=== PATIENT | female | born 1985 | race Caucasian/White ===

== ENCOUNTER 2016-04-25 20:05 | Emergency (ER) | payer OTHER ==
[~2016-04-25] VITALS: Ht 167.6 cm; Wt 65.8 kg
[2016-04-25 20:18] VITALS: BP 132/86
--- NOTE | 2016-04-25 20:44 | PHYS DOC ---
Past Medical History Past Medical History: No Pertinent History Past Surgical History: No Surgical History Alcohol Use: Occasionally Drug Use: None Adult General Chief Complaint Chief Complaint: FATIGUE HPI HPI Patient is a 30 year old female who presents emergency Department today with complaint of congestion, nonproductive cough, generalized aches, decreased energy, lightheadedness and exertional dyspnea that he initially began yesterday evening. Patient is a nurse in another local hospital. She has been exposed to patients with influenza a. Other than working in the hospital, she denies recent hospitalizations patient, foreign travel or antibiotic use within the past 90 days. She denies any history of heart or lung disease. Patient states that she had an episode of diarrhea yesterday as well. There are no reported illnesses within the home. Review of Systems Review of Systems Constitutional: Denies fever or chills [] Eyes: Denies change in visual acuity, redness, or eye pain [] HENT: Denies nasal congestion or sore throat [] Respiratory: Denies cough or shortness of breath [] Cardiovascular: No additional information not addressed in HPI [] GI: Denies abdominal pain, nausea, vomiting, bloody stools or diarrhea [] : Denies dysuria or hematuria [] Musculoskeletal: Denies back pain or joint pain [] Integument: Denies rash or skin lesions [] Neurologic: Denies headache, focal weakness or sensory changes [] Endocrine: Denies polyuria or polydipsia [] Current Medications Current Medications Current Medications Medications (Trade) Dose Ordered Sig/Cynthia Start Time Stop Time Status Last Admin Dose Admin Oseltamivir Phosphate (Tamiflu) 75 mg 1X ONCE 04/25/16 21:15 04/25/16 21:16 UNV Allergies Allergies Allergies Coded Allergies Type Severity Reaction Last Updated Verified No Known Drug Allergies 04/25/16 No Physical Exam Physical Exam Constitutional: Well developed, well nourished, no acute distress, non-toxic appearance. HENT: Normocephalic, atraumatic, bilateral external ears normal, oropharynx moist, no oral exudates, scant amount of clear rhinorrhea. There is no trismus or hot potato speech. Posterior oropharynx is with mild cobblestoning. There is no peritonsillar swelling or uvular deviation. Eyes: PERRLA, EOMI, conjunctiva normal, no discharge. [] Neck: Normal range of motion, no tenderness, supple, no stridor. There is no meningismus. There is bilateral anterior posterior cervical lymphadenopathy. Cardiovascular:Heart rate 86 with regular rhythm, no murmur Lungs & Thorax: There is no respiratory distress or respiratory fatigue. Patient is able speak in full sentences. Oxygen saturation is 98% on room air. Abdomen: Bowel sounds normal, soft, no tenderness, no masses, no pulsatile masses. [] Skin: Warm, dry, no erythema, no rash. [] Back: No tenderness, no CVA tenderness. [] Extremities: No tenderness, no cyanosis, no clubbing, ROM intact, no edema. [] Neurologic: Alert and oriented X 3, normal motor function, normal sensory function, no focal deficits noted. [] Psychologic: Affect normal, judgement normal, mood normal. [] Current Patient Data Vital Signs Vital Signs Date Time Temp Pulse Resp B/P Pulse Ox O2 Delivery O2 Flow Rate FiO2 04/25/16 20:18 98.2 94 16 100 Room Air 98.2 Lab Values Laboratory Tests Test 04/25/16 20:19 Influenza Type A Antigen Positive (NEGATIVE) Influenza Type B Antigen Negative (NEGATIVE) EKG EKG [] Radiology/Procedures Radiology/Procedures [] Course & Med Decision Making Course & Med Decision Making Pertinent Labs and Imaging studies reviewed. (See chart for details) [] Dragon Disclaimer Dragon Disclaimer This electronic medical record was generated, in whole or in part, using a voice recognition dictation system. Departure Departure Impression: Primary Impression: Influenza A Disposition: 01 HOME, SELF-CARE Condition: GOOD Referrals: NO PCP (PCP) Patient Instructions: Influenza, Adult, [id number] Additional Instructions: 1. You tested positive for influenza A. 2. Acetaminophen every 4-6 hours or ibuprofen every 8 hours for fever and body aches. 3. Maintain adequate hydration by drinking 10-12, 10 ounce glasses of non- caffeinated beverage daily. 4. Rest at home for the next 3 days. 5. Take the medications prescribed. 6. Review the discharge instructions for self-care and reasons to return to the emergency department. 7. Follow-up with a primary care doctor within a week if no improvement or worsening of your symptoms. A pamphlet is provided to you for assistance in making this happened. Scripts Oseltamivir Phosphate (Tamiflu)75 Mg Capsule1 Cap PO BID #9 CAP You received first dose of Tamiflu in the emergency department. Prov:STEPHANIE PALMA 04/25/16 STEPHANIE PALMA Apr 25, 2016 20:44
[2016-04-25 21:04] LABS: OBC FLU VALID
[2016-04-25] MEDS ORDERED: OSEL75CA PO (21:11)
[2016-04-25] MEDS ORDERED: OSELTAMIVIR 75 MG CAPSULE PO ONE (21:15)
== END 2016-04-25 21:19 | disposition home or self-care (01) ==
LOC: ER 20:05
DX: J09.X2 Influenza due to identified novel influenza A virus with other respiratory manifestations (principal)
CPT/HCPCS: 87804; 99284

== ENCOUNTER 2017-02-25 06:36 | Day surgery (SDC) | payer OTHER ==
[~2017-02-25] VITALS: Ht 165.1 cm; Wt 69.9 kg
[~2017-02-25 06:36] MED LIST: OSEL75CA PO
[2017-02-25] MEDS ORDERED: fentaNYL PF VIAL 100 MCG/2 ML VIAL IV PRN ×2 (07:00)
[2017-02-25] MEDS ORDERED: ONDANSETRON PF 4 MG/2 ML VIAL. IV PRN (07:00)
[2017-02-25] MEDS ORDERED: IV RINGERS,LACTATED 1000ML 1,000 ML IV SCH (07:00)
[2017-02-25] MEDS ORDERED: HYDROmorphone 2 MG/ML VIAL IV PRN (07:00)
[2017-02-25] MEDS ORDERED: MORPHINE SULFATE 2 MG/ML DISP.SYRIN. IV PRN (07:00)
[2017-02-25] MEDS ORDERED: LIDOCAINE 1% PF 2 ML VIAL. ID PRN (07:00)
[2017-02-25] MEDS ORDERED: PROCHLORPERAZINE 10 MG/2 ML VIAL. IV PRN (07:00)
[2017-02-25] MEDS ORDERED: FERR-26 PO (07:09)
[2017-02-25] MEDS ORDERED: BUPIVAC MPF-EPI 0.5%-1:200000 30 ML VIAL. ONE (07:13)
[2017-02-25 07:19] LABS: NEG OBC UR NEG; POS OBC UR POS
[2017-02-25] MEDS ORDERED: MIDAZOLAM HCL/PF 2 MG/2 ML VIAL. ONE (07:39)
[2017-02-25] MEDS ORDERED: fentaNYL PF VIAL 100 MCG/2 ML VIAL ONE (07:39)
--- NOTE | 2017-02-25 07:54 | PDOC ---
SURGICAL PROGRESS NOTE Subjective Pre-Op Note Pt seen and reexamined. Office note H&P reviewed and unchanged. 31 yo F with RLQ SQ mass, c/w endometrioma. Pt on period currently, with mass large and painful site marked with pt in preop TO OR for excisional biopsy R/B/A d/w pt and pt's . Risks, including, but not limited to: bleeding, infection, damage to surrounding structures, risk of anesthesia They appear to understand, their questions are answered and they agree to proceed. Vital Signs Vital Signs Date Time Temp Pulse Resp B/P (MAP) Pulse Ox O2 Delivery O2 Flow Rate FiO2 02/25/17 07:05 97.8 75 18 119/74 100 Room Air 97.8 Labs Laboratory Tests Test 02/25/17 06:43 Urine Test Negative (NEG) Laboratory Tests Test 02/25/17 06:43 Urine Test Negative (NEG) ANN MARIE SHEPPARD MD Feb 25, 2017 07:54
[2017-02-25] MEDS ORDERED: ceFAZolin 2GM PREMIX 2 GM/50 ML BAG IV ONE (08:00)
[2017-02-25] MEDS ORDERED: SEVOFLURANE 31 TO 60 MINUTES. IH ONE (08:07)
[2017-02-25] MEDS ORDERED: diphenhydrAMINE 50 MG/ML VIAL ONE (08:07)
[2017-02-25] MEDS ORDERED: KETOROLAC 30 MG/ML INJ FOR OR. INJ ONE (08:07)
--- NOTE | 2017-02-25 09:11 | PDOC4 ---
OPERATIVE NOTE Date: Date: Feb 25, 2017 Pre-Op Diagnosis: right lower quadrant abdominal wall mass, favor endometrioma Post-Op Diagnosis: same Procedure Performed: Excisional biopsy of 3 cm mass of abdominal wall Surgeon: Zach Sheppard Anesthesia Type: GETA plus 0.5% marcaine Blood Loss: minimal Specimans Obtained: biopsy Findings: 3 cm mass, completely excised, did not appear to invade abdominal wall musculature Complications: none Operative Note: After obtaining informed consent, patient was taken to the OR, induced under GETA, and prepped in the usual fashion. Transverse incision was made using 15 blade scalpel at the right edge of previous scar. Mass encountered in subcutaneous tissue. Completely excised using cautery. Mass sent to pathology for evaluation. Hemostasis obtained using cautery. Local injected. Mass did not appear to involve the fascia, which was noted to be intact and no evidence of exposed muscle. Subcutaneous tissue approximated with 3 0 vicryl and skin repaired with 4 0 monocryl. Dressing applied. Patient tolerated procedure well. Sent to PACU in stable condition. All counts were correct. No immediate complications. ZACH SHEPPARD MD Feb 25, 2017 09:11
[2017-02-25] MEDS ORDERED: HYDR-2758 PO (09:29)
[2017-02-25] MEDS ORDERED: DOCU-109 PO (09:29)
[2017-02-25] MEDS ORDERED: ONDA4TAB7 PO (09:30)
[2017-02-25] MEDS ORDERED: HYDROcodone/APAP 5/325MG 1 TAB TABLET PO ONE (09:30)
[2017-02-25 10:00] VITALS: BP 116/47
--- NOTE | 2017-02-26 16:11 | PATHOLOGY ---
PATHOLOGY REPORT * * * * * * * * FINAL DIAGNOSIS: Fibroadipose tissue, right abdominal wall subcutaneous mass, excisional biopsy: - Endometriosis with associated scarring and focal chronic inflammation. Comment: There is no evidence of malignancy. (JPM:mml; 02/26/2017) REPORT ELECTRONICALLY SIGNED BY: Mohsen Gillespie M.D. DATE/TIME: 02/26/2017 16:10 * * * * * * * * GROSS PATHOLOGY: The specimen is received fresh for intraoperative consultation and is designated "abdominal wall subcutaneous mass". This consists of an ovoid-shaped segment of lobulated, yellow-red fatty appearing tissue, which measures up to 4.7 x 2.8 x 2.0 cm in greatest dimension. There is a firm palpable nodule within the specimen. The margins are inked. The specimen is bisected. Sectioning reveals a sclerotic and hemorrhagic ill-defined nodule measuring approximately 2 cm in greatest dimension. A wholesale representative portion is submitted for frozen section as FSA1. The tissue remaining from frozen section is submitted for permanent sections as A1. Additional sections are submitted following formalin fixation as A2-A4. (JPM:may; 02/25/2017) FROZEN SECTION DIAGNOSIS: (Mohsen Gillespie M.D.) Fibroadipose tissue, excisional biopsy right abdominal wall subcutaneous mass: - Endometriosis. The results are reported to Dr. Koo. Testing performed by [facility] [place] [address] (JPM:may; 02/25/2017) INITIAL CPT CODE(S): A; 01093, 15918 Professional services performed [place] [address] Technical services performed by [facility] at [address] [place] [address], [facility] [address], [place] [address]. SPECIMEN(S) RECEIVED: A.Abdominal wall subcutaneous mass CLINICAL HISTORY: Endometrioma PATIENT: JF CARNEY /AGE: 406/22/1985 (Age: 31) PATIENT #: [id number] ALT CASE #: SPECIMEN COLLECTION DATE: 02/25/2017 SPECIMEN RECEIVED DATE: 02/25/2017 [facility] - [id number] [place] [address] - PHONE: [phone] * * * END OF REPORT * * *
== END 2017-02-25 10:30 | disposition home or self-care (01) ==
LOC: SURG 06:36
PROVIDERS: ATTEND Surgery
DX: R19.00 Intra-abdominal and pelvic swelling, mass and lump, unspecified site (principal); N80.9 Endometriosis, unspecified; Z98.890 Other specified postprocedural states
CPT/HCPCS: 11404; 81025; 88305; 88331; C1769; J0690; J0780; J1200; J1885; J2250; J3010; J3490; J7030